=== PATIENT | male | born 1975 | race Caucasian/White ===

== ENCOUNTER 2022-11-11 14:45 | Emergency (ER) | payer SELFPAY ==
[~2022-11-11] VITALS: Ht 182.9 cm; Wt 104.3 kg
[2022-11-11 14:45] VITALS: BP 185/113; PULSE 83; RESP 18; TEMP 98.9; O2SAT 99
[2022-11-11 14:56] LABS: BASOPHIL % 0.6 % (0.0-0.2); EOSINOPHIL # 0.3 10^3/uL (0.0-0.2); EOSINOPHIL % 3.7 % (0.0-5.0); HEMOGLOBIN 18.5 g/dL (13.9-16.3); IG % 0.1 % (0.00-0.50); LYMPHOCYTES # 1.76 10^3/uL1 (1.0-4.8); LYMPHOCYTES % 24.8 % (24.0-44.0); MEAN CORP HGB 36.9 pg (26-34); MEAN CORP HGB CONCENTRATION 35.6 g/dL (33-36.5); MEAN CORP VOLUME 103.6 fL (78-100); MONOCYTES # 0.6 10^3/uL (0.3-0.8); MONOCYTES % 7.7 % (5.0-12.0); NEUTROPHIL # 4.5 10^3/uL (1.8-7.7); NEUTROPHILS % 63.1 % (41.0-85.0); RED BLOOD CELL 5.02 10^6/uL (4.50-5.90); RED CELL DISTRIBUTION WIDTH 13.8 % (11.5-14.5); WHITE BLOOD CELL 7.1 10^3/uL (4.5-11.0)
[2022-11-11] MEDS ORDERED: ASPIRIN ONE (14:57)
[2022-11-11] MEDS ORDERED: ASPIRIN PO PRN (15:00)
[2022-11-11 15:14] LABS: INR 1.1; PROTHROMBIN PROTIME 11.3 SEC (9.7-11.6)
[2022-11-11 15:22] LABS: ALBUMIN/GLOBULIN RATIO 1.212; ANION GAP 23.6; CALCIUM 8.6 mg/dL (8.4-10.5); CARBON DIOXIDE 15.3 mmol/L (20.0-32); CREATINE KINASE MB 0.8 ng/mL (0.5-3.6); CREATININE SERUM 1.15 mg/dL (0.59-1.40); EST GFR, NON-AA 68.5 (>/=60); POTASSIUM 3.9 mmol/L (3.6-5.2)
[2022-11-11 16:14] VITALS: BP 185/113; PULSE 89; RESP 18; TEMP 98.9; O2SAT 99
[2022-11-11 18:01] VITALS: BP 137/87; PULSE 85; RESP 18; TEMP 98.9; O2SAT 99
== END 2022-11-11 18:01 | disposition home or self-care (01) ==
LOC: ER 14:45
DX: R07.89 Other chest pain (principal); I10 Essential (primary) hypertension; F17.210 Nicotine dependence, cigarettes, uncomplicated; Z82.49 Family history of ischemic heart disease and other diseases of the circulatory system
CPT/HCPCS: 36415; 71046; 80053; 82550; 82553; 83880; 84484; 85025; 85379; 85610; 85730; 93005; 99285